=== PATIENT | male | born 1990 | race African-American/Black ===

== ENCOUNTER → 2018-07-21 12:26 | Emergency (ER) | payer SELFPAY ==
[~2018-07-21 12:26] MED LIST: Azithromycin TAB* 250 MG PO ONE; cefTRIAXone VIAL(*) 250 MG VIAL IM ONE; metroNIDAZOLE TAB* 250 MG PO ONE
--- NOTE | 2018-07-21 13:17 | ED ---
GI/ HPI - HPI Summary HPI Summary: Pt. is a 28 y.o male who presents emergency department for penile discharge times one month. Patient's significant other is present as well and states that she was tested for STDs yesterday and was positive for Trichomonas. She has pending gonorrhea and chlamydia cultures. Patient denies fever, chills, abdominal pain, flank pain, dysuria, erythema, swelling or lesions abdominal region. No past medical history. Symptoms are mild in severity. No current modifying factors. - History of Current Complaint Chief Complaint: EDUrogenitalProblems Time Seen by Provider: 07/21/18 12:37 Stated Complaint: NEEDS TREATMENT FOR STD PER PT Hx Obtained From: Patient Pain Intensity: 0 - Allergy/Home Medications Allergies/Adverse Reactions: Allergies Allergy/AdvReac Type Severity Reaction Status Date / Time No Known Allergies Allergy Verified 07/21/18 12:29 PMH/Surg Hx/FS Hx/Imm Hx Previously Healthy: Yes Infectious Disease History: No Infectious Disease History: Denies: Traveled Outside the [place] in Last 30 Days - Family History Known Family History: Positive: Non-Contributory - Social History Occupation: Unemployed Lives: With Family Review of Systems Constitutional: Negative Negative: Fever, Chills Gastrointestinal: Negative Negative: Abdominal Pain Positive: discharge. Negative: dysuria, urgency Musculoskeletal: Negative Negative: Arthralgia Skin: Negative Negative: Rash All Other Systems Reviewed And Are Negative: Yes Physical Exam Triage Information Reviewed: Yes Vital Signs On Initial Exam: Initial Vitals Temp Pulse Resp BP Pulse Ox 97.4 F 101 18 159/111 98 07/21/18 12:29 07/21/18 12:29 07/21/18 12:29 07/21/18 12:29 07/21/18 12:29 Vital Signs Reviewed: Yes Appearance: Positive: Well-Appearing - Pt. sitting on bed in NAD. SO present. Skin: Positive: Warm, Dry Head/Face: Positive: Normal Head/Face Inspection Eyes: Positive: Normal, EOMI, DC Neck: Positive: Supple Respiratory/Lung Sounds: Positive: Clear to Auscultation, Breath Sounds Present Cardiovascular: Positive: Normal, RRR Abdomen Description: Positive: Nontender, Soft. Negative: CVA Tenderness (R), CVA Tenderness (L) Neurological: Positive: Normal, CN Intact II-III Psychiatric: Positive: Affect/Mood Appropriate Diagnostics - Vital Signs Vital Signs Temp Pulse Resp BP Pulse Ox 07/21/18 13:09 97.9 F 79 18 134/90 99 07/21/18 12:29 97.4 F 101 18 159/111 98 - Laboratory Lab Statement: Any lab studies that have been ordered have been reviewed, and results considered in the medical decision making process. GIGU Course/Dx - Course Course Of Treatment: Patient presenting to the ER for evaluation of penile discharge. A sexual partner is positive for Trichomonas. Will treat with Rocephin and single dose of azithromycin and Flagyl in the ER. Pending gonorrhea and chlamydia culture. Advised patient to avoid sexual contact until symptoms resolve. Advised to always use sexual protection such as condoms. To follow-up with the [facility] and return to the ER if symptoms change or worsen. Patient understands and agrees with plan. - Diagnoses Differential Diagnoses - Male: STD Provider Diagnoses: Sexually transmitted disease exposure Discharge - Sign-Out/Discharge Documenting (check all that apply): Patient Departure Patient Received Moderate/Deep Sedation with Procedure: No - Discharge Plan Condition: Good Disposition: HOME Patient Education Materials: Sexually Transmitted Diseases (ED) Referrals: [facility] [Outside] Additional Instructions: Schedule a follow up appointment with the [facility] Avoid sexual contact until all symptoms resolved Always use sexual protection such as condoms Return to ER if symptoms change or worsen - Billing Disposition and Condition Condition: GOOD Disposition: Home
[2018-07-22 12:58] LABS: Neisseria gonorrhoeae (GC) RNA Negative (Negative)
== END | disposition home or self-care (01) ==
LOC: ED 12:26
DX: Z20.2 Contact with and (suspected) exposure to infections with a predominantly sexual mode of transmission (principal)
CPT/HCPCS: 87491; 87591; 96372; 99283; A9270-GY; J0696